=== PATIENT | female | born 1960 | race Caucasian/White ===

== ENCOUNTER 2018-09-30 00:55 | Outpatient (CLI) | payer BC, SELFPAY ==
--- NOTE | 2018-09-30 07:52 | DI.MAMMO_ITS ---
SYMPTOM/DIAGNOSIS: SCREENING, Z12.31 MAMMOGRAMS: Mammograms were interpreted according to the usual protocol including computer analysis with CAD system, tomosynthesis and C view imaging. Comparison is with the prior examinations. No suspicious masses or microcalcifications are seen. There is no definite evidence of malignancy. IMPRESSION: Negative mammogram. Routine screening is recommended. Category 1, breast density C. MQSA ASSESSMENT OF FINDINGS: Negative. Category 1. Patient will receive a letter notifying them of these results. Bi-RADS category C. The breasts are heterogeneously dense, which may obscure small masses.
== END 2018-09-30 01:15 ==
PROVIDERS: PCP Family Medicine; Visit Provider Family Medicine
DX: Z12.31 Encounter for screening mammogram for malignant neoplasm of breast (principal)
CPT/HCPCS: 77063; 77067

== ENCOUNTER 2018-12-02 10:14 | Outpatient (REF) | payer BC, SELFPAY ==
--- NOTE | 2018-12-02 08:45 | PAPFT_PTH ---
PATIENT: Brooklyn Lizarraga LOC: [facility] U#:[id number] AGE/SX: 58/F ROOM: RE12/02/[address]: Muna Oleary : 1960 BED: DIS: 12/02/2018 SPEC #: [id number] RECD: 12/02/18 12:27 STATUS: NENA REQ #: [id number] SHAHID: 12/02/18 08:[address]: Muna Oleary DEPT: [facility] Cytology RECD BY: Bridget Klein Tissues: 1 - CX/ENDOCX FOR PAP SMEARS Procedures: PAP THIN PREP/UVM Screening HPV DNA PROBE Comments: [id number]
[2018-12-02 11:27] LABS: HCT 41.2 % (36.0-46.0); HGB 13.8 g/dL (12.0-15.5); Mean Corp. HGB Concentration 33.5 g/dL (32.0-36.0); Mean Corpuscular Volume 101.5 fL (80-95); Mean Platelet Volume 11.8 fL (8.0-11.0); Platelet Count 238 x1000/uL (130-400); RBC 4.06 m/cumm (4.00-5.20); White Blood Cell Count 6.23 k/cumm (4.4-10.8)
[2018-12-02 11:50] LABS: ALT 36 U/L (14-59); AST 29 U/L (15-37); Albumin 4.1 g/dL (3.4-5.0); Alkaline Phosphatase 74 U/L (46-116); Anion Gap 10.7 mmol/L (3-11); BUN 16 mg/dL (7-18); Bilirubin, Total 0.4 mg/dL (0.2-1.0); CO2 26.3 mmol/L (21.0-32.0); CREATININE 0.77 mg/dL (0.55-1.02); Calcium 9.3 mg/dL (8.5-10.1); Calculated LDL 186 mg/dL; Chloride 104 mmol/L (98-107); Cholesterol 287 mg/dL (50-200); Glucose 117 mg/dL (70-100); HDL Cholesterol 78 mg/dL (40-60); Potassium 4.1 mmol/L (3.5-5.1); Sodium 141 mmol/L (136-145); Total Protein 7.6 g/dL (6.4-8.2); Triglyceride 119 mg/dL (30-150)
== END 2018-12-02 10:34 ==
LOC: NCHCN 10:14
PROVIDERS: PCP Family Medicine; Visit Provider Family Medicine
DX: Z00.00 Encounter for general adult medical examination without abnormal findings (principal); Z13.220 Encounter for screening for lipoid disorders; Z13.228 Encounter for screening for other metabolic disorders; Z13.0 Encounter for screening for diseases of the blood and blood-forming organs and certain disorders involving the immune mechanism; Z12.4 Encounter for screening for malignant neoplasm of cervix; Z11.51 Encounter for screening for human papillomavirus (HPV)
CPT/HCPCS: 80053; 80061; 85027; 88142; 87624

== ENCOUNTER 2020-01-30 00:52 | Outpatient (CLI) | payer BC, SELFPAY ==
--- NOTE | 2020-01-30 15:50 | DI.MAMMO_ITS ---
EXAM: MG MAMMO SCREENING CLINICAL HISTORY: SCREENING,Z12.31 TECHNIQUE: Bilateral full field digital CC and MLO mammographic images were obtained with 3D tomosyn thesis and utilizing computer aided detection (CAD). COMPARISON: Available for comparison. FINDINGS: Masses/Architectural Distortion: None seen. Microcalcifications: No suspicious pleomorphic-type are seen. Skin Thickening/Nipple Retraction: None. IMPRESSION: 1. No significant interval change with no specific features of malignancy noted. 2. Unless there is more urgent need, screening mammography is recommended, as per [employer] [place] [employer] guidelines. BI-RADS Category 1 - Negative Breast Density - Category C - Heterogeneously dense The mammogram demonstrates the patient's breast tissue is dense. Dense breast tissue is very common a nd is not abnormal but dense breast tissue can make it harder to find cancer on a mammogram. Also, de nse breast tissue may increase their breast cancer risk. This information about the result of the [facility] mogram report was provided to the patient to raise their awareness. Use this report when you speak wi th the patient about their risks for breast cancer, which includes their family history. At that time , you may recommend for more screening tests (Ultrasound or MRI) as they might be useful based on the ir risk. A negative radiographic report should not delay biopsy if a dominant or clinically suspicious mass is present. Up to ten percent of cancers are not identified on mammography. A negative report may reinforce clinical impression. Adenosis and dense breasts may obscure an underlying neoplasm. False positive reports average 6 to 10%. Patient will receive a letter notifying them of these results.
== END 2020-01-30 01:12 ==
PROVIDERS: PCP Family Medicine; Visit Provider Family Medicine
DX: Z12.31 Encounter for screening mammogram for malignant neoplasm of breast (principal)
CPT/HCPCS: 77063; 77067

== ENCOUNTER 2022-07-06 16:58 | Emergency (ER) | payer BC, SELFPAY ==
[2022-07-06 16:54] VITALS: BP 119/74; PULSE 74; RESP 18; TEMP 37; O2SAT 100
--- NOTE | 2022-07-06 17:30 | DI.RAD_ITS ---
Exam(s) XR FEMUR RT EXAM: XR FEMUR RT CLINICAL HISTORY: accidental split, pain medial thigh and pelvis. TECHNIQUE: 2D digital imaging was performed. COMPARISON: No exams were available for comparison FINDINGS: Two views: No evidence of fracture. Bone density normal. No osseous lesions. No evidence of knee joint effusi on. IMPRESSION: No significant osseous findings. DATA REPOSITORY: RADIATION DOSE DELIVERED:
--- NOTE | 2022-07-06 17:30 | DI.RAD_ITS ---
Exam(s) XR HIP RT COMPLETE AP PELVIS EXAM: XR HIP RT COMPLETE AP PELVIS CLINICAL HISTORY: accidental splint, medial pain and pelvic pain. TECHNIQUE: 2D digital imaging was performed. COMPARISON: No exams were available for comparison FINDINGS: 3 views No evidence of acute pelvic nor hip fracture. Small calcifications are seen bilaterally adjacent to the greater trochanters a both hips. May represent calcific tendinitis-bursitis. No significant hip joint space narrowing. IMPRESSION: No acute fractures evident. DATA REPOSITORY: RADIATION DOSE DELIVERED:
[2022-07-06] MEDS: Ibuprofen 600 MG TAB PO (17:40)
[2022-07-06] MEDS: Ondansetron O.D.T. 4 MG TABEF PO (17:40)
[2022-07-06] MEDS: oxyCODONE 5 MG TAB PO (17:41)
--- NOTE | 2022-07-06 18:27 | DI.VRAD_ITS ---
PROCEDURE INFORMATION: Exam: XR Right Femur Exam date and time: 07/06/2022 5:53 PM Age: 61 years old Clinical indication: Injury or trauma; Other: Accidental split, pain medial thigh and pelvis TECHNIQUE: Imaging protocol: Radiologic exam of the right femur. Views: 2 views. COMPARISON: CR XR HIP RT COMPLETE AP PELVIS 07/06/2022 5:51 PM FINDINGS: Bones/joints: Unremarkable. No acute fracture. Soft tissues: Unremarkable. IMPRESSION: No acute findings. Dictated and Authenticated by: Josué Lenz MD. Ordering:LYDIA Gill MD
--- NOTE | 2022-07-06 18:28 | DI.VRAD_ITS ---
PROCEDURE INFORMATION: Exam: XR Right Hip Exam date and time: 07/06/2022 5:51 PM Age: 61 years old Clinical indication: Injury or trauma; Fall; Other: Accidental split, pain medial thigh and pelvis TECHNIQUE: Imaging protocol: Radiologic exam of the right hip. Views: 2 or 3 views hip with pelvis when performed. COMPARISON: No relevant prior studies available. FINDINGS: Bones/joints: There is a well corticated bony fragment at the level of the superolateral aspect of the acetabulum. This could be causing an impingement syndrome. There is no evidence of a fracture or a dislocation. Soft tissues: Unremarkable. IMPRESSION: Question impingement syndrome as above. No evidence of a fracture or dislocation. Dictated and Authenticated by: Josué Lenz MD. Ordering:LYDIA Gill MD
--- NOTE | 2022-07-06 18:57 | ED.GENADUL_ITS ---
Discharge Plan Disposition Patient Disposition: Home Discharge Details Clinical Impression: History of leg sprain Primary Care Provider: Muna Oleary ED Provider: Bridget Rockwell Home Meds and New Rx's Prescriptions: New lidocaine [Lidoderm] 5 % adhesive patch,medicated 1 patch topical DAILY Qty: 15 0RF Rx Instructions: leave on most painful area for up to 12 hrs cyclobenzaprine 10 mg tablet 10 mg PO TID PRNQty: 10 0RF oxycodone 5 mg capsule 5 mg PO Q6H PRNQty: 10 0RF Continued lorazepam 0.5 MG tablet 0.5 mg PO Q6H Qty: 10 0RF Patient Comments: not taking Discharge Instructions Additional Instructions: Please follow-up with orthopedics Use your crutches with ambulation Take ibuprofen 600 mg every 8 hours with food Take Tylenol 650 mg every 4-6 hours, do not exceed 3 g of Tylenol daily Take either the cyclobenzaprine or the oxycodone, do not take them with any 8 hours of each other Oxycodone can be addictive, use this medication sparingly but use it as needed Apply ice, Lidoderm patch, 12 hours on, 12 hours off Weightbearing as tolerated Return earlier should you have new or worsening complaints including significant swelling, numbness to your extremities, persistent or worsening pain Referrals: Muna Oleary [Primary Care Provider] - Discharge Data Discharge Date/Time-TO BE ENTERED AT DEPARTURE: 07/06/22 20:01 Medical Decision Making 61-year-old female presents with slip and fall on ice, unable to bear weight on her right leg X-rays of pelvis, hip, and femur were ordered for further evaluation per virtual radiology interpretation my review do not show evidence of acute abnormality Check several doses of pain medication for the patient to be able to ambulate, in a dependent position, she is in excruciating pain She was given additional dose of morphine and able to toe-touch weight-bear with crutches I think she will need very close outpatient follow-up, I am concerned regarding severe sprain, I referred to orthopedics for further evaluation Given oxycodone and Flexeril for home HPI General Date/Time Provider Initiated Documentation: 07/06/22 17:23 . HPI Narrative: This 61-year-old female presents with report of right groin pain. Patient states that she slipped on some ice and did a split. She states that she was unable to get up secondary to severe pain in her right posterior thigh She states she is unable to bear weight. She denies any additional injuries. She is otherwise reportedly healthy. Related Data Home Medications Medication Instructions Recorded Confirmed lorazepam 0.5 mg tablet 0.5 mg PO Q6H #10 tabs 12/29/13 03/21/19 cyclobenzaprine 10 mg tablet 10 mg PO TID PRN #10 tabs 07/06/22 lidocaine 5 % topical patch 1 patch topical DAILY #15 ea 07/06/22 (Lidoderm) oxycodone 5 mg capsule 5 mg PO Q6H PRN #10 caps 07/06/22 Previous Rx's Medication Instructions Recorded lorazepam 0.5 mg tablet 0.5 mg PO Q6H #10 tabs 12/29/13 cyclobenzaprine 10 mg tablet 10 mg PO TID PRN #10 tabs 07/06/22 lidocaine 5 % topical patch 1 patch topical DAILY #15 ea 07/06/22 (Lidoderm) oxycodone 5 mg capsule 5 mg PO Q6H PRN #10 caps 07/06/22 Allergies Allergy/AdvReac Type Severity Reaction Status Date / Time oxycodone [Oxycodone] AdvReac Intermediate Nausea Unverified 07/06/22 16:53 General Stated Complaint: Orthopedic PEPE: 3 PFSH All Active Problems (Updated 07/06/22 @ 19:41 by ABIMAEL Baker) History of leg sprain (Acute) Trigger thumb, left thumb (Acute) Social History Smoking/Tobacco Use Status: Current every day Smoking risk assessment performed?: Yes Alcohol Intake: current Alcohol Intake frequency: holidays/special occasions only Drug use: Never Current gender identity: female Exam Narrative Exam Narrative: tenderness with palpation to the right medial thigh, neurovascularly intact, no tenderness to right knee or pelvis, no abdominal tenderness no midline back tenderness, neurovascularly intact distally No CVA tenderness Neck Other: No midline tenderness Course Vital Signs Vital signs: Vital Signs Temperature 37.0 C 07/06/22 16:54 Pulse 74 07/06/22 16:54 Respiratory Rate 18 07/06/22 16:54 Blood Pressure 119/74 07/06/22 16:54 Pulse Oximetry 100 07/06/22 16:54 Temperature 37.0 C 07/06/22 16:54 Pulse 74 07/06/22 16:54 Respiratory Rate 18 07/06/22 16:54 Respiratory Effort Normal, Non-Labored 07/06/22 16:53 Blood Pressure 119/74 07/06/22 16:54 Pulse Oximetry 100 07/06/22 16:54 PAWSS Have you Been Recently Intoxicated or Drunk Within the Last 30 days?: No Have you Ever Experienced Previous Episodes of Alcohol Withdrawal?: No Have you ever Experienced Withdrawal Seizures?: No Have you ever Experienced Delirium Tremens(DT)s?: No Have you ever undergone Alcohol Rehabilitation Treatment (i.e, inpt ot outpatient treatment programs)?: No Have you ever Experienced Blackouts?: No Have you ever Combined Alcohol with other Downers within the last 90 days?: No Have you ever Combined Alcohol with any other Substance of Abuse during the last 90 days?: No Positive Blood Alcohol level on Presentation? [PCS.BAL]: No Evidence of Increased Autonomic Activity (i.e. HR>120, tremor, sweating, agitation, nausea)?: No Result: 0
[2022-07-06] MEDS: MORPHine 10 MG/ML VIAL 6 MG IM (19:19)
[2022-07-06] MEDS: diazePAM 2 MG TAB PO (19:19)
[2022-07-06] MEDS: Lidocaine 5% Patch 1 PATCH TP (19:19)
[2022-07-06 20:00] VITALS: PULSE 78; TEMP 36.9; O2SAT 98
--- NOTE | 2022-07-07 12:54 | NUR.NOTE ---
Nursing Note:Accessed patient chart to print provider note to be faxed to [facility] for billing purposes.
== END 2022-07-06 20:01 | disposition home or self-care (01) ==
PROVIDERS: Emergency Provider Physician Assistant; PCP Family Medicine
DX: S73.101A Unspecified sprain of right hip, initial encounter (principal); W00.0XXA Fall on same level due to ice and snow, initial encounter
CPT/HCPCS: 73552; 96372; 99283; 73502; J2270

== ENCOUNTER 2022-07-31 01:34 | Outpatient (CLI) | payer BC, SELFPAY ==
--- NOTE | 2022-07-31 08:00 | DI.MAMMO_ITS ---
Exam(s) MAMMO SCREENING EXAM: MAMMO SCREENING CLINICAL HISTORY: SCREENING, Z12.31. TECHNIQUE: Bilateral full field digital CC and MLO mammographic images were obtained with 3D tomosyn thesis and utilizing computer aided detection (CAD). COMPARISON: Prior mammograms were reviewed. FINDINGS: There has been no significant change in the appearance and distribution of the fibroglandular tissue which is again noted be moderately dense and with a somewhat nodular pattern.. There are no obvious new findings in left breast. In the right breast on CC image there is a asymmetric density located 4 cm in from the nipple, slight ly lateral of center and measuring approximately 5 x 4 mm, possibly nodule. Further imaging recommen ded. There are no malignant-appearing microcalcification groups in this region or elsewhere in either [address]. There is no significant architectural distortion nor skin thickening-retraction. IMPRESSION: Moderately dense fibroglandular tissue. No radiographic evidence of malignancy in the left breast. However, there is suggestion of a nodular density in the right breast measuring 5 x 4 mm. Spot compr ession CC mammographic view and breast ultrasound recommended. BI-RADS Category 0 - Assessment Incomplete: Need additional imaging evaluation Breast Density - Category C - Heterogeneously dense Breast density Category C or D implies that the patient has dense breast tissue. Dense breast tissue can make it harder to find cancer on a mammogram. Dense breast tissue is also associated with an incr eased risk of breast cancer. This information about the result of the mammogram report was provided to the patient to raise their awareness. Use this report when you speak with the patient about their risks for breast cancer, which includes their family history. At that time, you may recommend additional screening tests (Ultrasoun d or MRI) as these tests may add significant information. A negative radiographic report should not delay biopsy if a dominant or clinically suspicious mass is present. Up to ten percent of cancers are not identified on mammography. A negative report may reinforce clinical impression. Adenosis and dense breasts may obscure an underlying neoplasm. False positive reports average 6 to 10%. Patient will receive a letter notifying them of these results.
== END 2022-07-31 01:54 ==
LOC: DI 01:35
PROVIDERS: PCP Family Medicine; Visit Provider Family Medicine
DX: Z12.31 Encounter for screening mammogram for malignant neoplasm of breast (principal); R92.8 Other abnormal and inconclusive findings on diagnostic imaging of breast
CPT/HCPCS: 77063; 77067

== ENCOUNTER 2022-08-08 00:49 | Outpatient (CLI) | payer BC, SELFPAY ==
--- NOTE | 2022-08-08 10:15 | DI.MAMMO_ITS ---
Exam(s) MG MAMMO SCREEN CALL BACK UNI US BREAST RT LIMITED EXAM: MG MAMMO SCREEN CALL BACK UNI and U/S breast RT limited CLINICAL HISTORY: ASYMMETRIC DENSITY 4 CM FROM NIPPLE, 5 X 4 MM, RT BREAST. TECHNIQUE: Craniocaudal and mediolateral oblique Full Field Digital Mammography views of the right b reast with Computer Aided Diagnosis followed by Tomosynthesis and right breast ultrasound. COMPARISON: Comparison is made with prior examinations. FINDINGS: Mammography/Tomosynthesis: Masses/Architectural Distortion: The area of concern in the outer right breast is less concerning on the current examination. No persistent nodule is seen. Microcalcifictions: No suspicious pleomorphic-type are seen. Skin Thickening/Nipple Retraction: None. Limited right breast US: Echotexture: Normal appearance of the glandular tissue. Shadowing: No suspicious foci. Cyst: None. Solid lesions: There is a ovoid radially oriented hypoechoic nodule at the 9 o'clock position of the right breast measuring 0.6 x 0.3 cm. No posterior acoustic enhancement or shadowing is seen. It has a somewhat lobulated appearance and may represent an intraparenchymal lymph node. Ductal dilation: None. IMPRESSION: 1. No definite evidence of malignancy is noted. 2. A six-month follow-up right mammogram and ultrasound is requested for re-evaluation. 3. The findings were discussed with the patient on the date of the examination. BI-RADS Category 3 - 6 month - Probably Benign Finding: Recommend follow-up imaging in 6 months Breast Density - Category C - Heterogeneously dense Breast density Category C or D implies that the patient has dense breast tissue. Dense breast tissue can make it harder to find cancer on a mammogram. Dense breast tissue is also associated with an incr eased risk of breast cancer. This information about the result of the mammogram report was provided to the patient to raise their awareness. Use this report when you speak with the patient about their risks for breast cancer, which includes their family history. At that time, you may recommend additional screening tests (Ultrasoun d or MRI) as these tests may add significant information. A negative radiographic report should not delay biopsy if a dominant or clinically suspicious mass is present. Up to ten percent of cancers are not identified on mammography. A negative report may reinforce clinical impression. Adenosis and dense breasts may obscure an underlying neoplasm. False positive reports average 6 to 10%. Patient will receive a letter notifying them of these results.
== END 2022-08-08 01:09 ==
LOC: DI 00:49
PROVIDERS: PCP Family Medicine; Visit Provider Family Medicine
DX: R92.8 Other abnormal and inconclusive findings on diagnostic imaging of breast (principal)
CPT/HCPCS: 76642; 77063; 77067

== ENCOUNTER 2022-08-27 08:47 | Outpatient (REF) | payer BC, SELFPAY ==
[2022-08-27 15:05] LABS: HCT 41.8 % (36.0-46.0); HGB 13.9 g/dL (11.2-15.7); MCH 35.3 pg (27.0-33.0); MCHC 33.3 % (32.0-36.0); MCV 106 fL (80-95); MPV 11.4 fL (8.0-11.0); Platelet Count 239 10^3/uL (130-400); RBC 3.94 10^6/uL (3.93-5.22); RDW 13.3 % (11.7-14.6); RDW-SD 52.9 fL; WBC 8.02 10^3/uL (4.4-10.8)
[2022-08-27 15:34] LABS: Hemoglobin A1C 5.2 % (<5.7)
[2022-08-27 15:46] LABS: ALT 28 U/L (14-59); AST 27 U/L (15-37); Albumin 4.1 g/dL (3.4-5.0); Alkaline Phosphatase 81 U/L (46-116); BUN 7 mg/dL (7-18); Bilirubin, Total 0.6 mg/dL (0.2-1.0); CREATININE 0.9 mg/dL (0.55-1.02); Calcium 9.6 mg/dL (8.5-10.1); Calculated LDL 133 mg/dL (<100); Chloride 104 mmol/L (98-107); Cholesterol 271 mg/dL (<200); Estimated GFR 73.19 (mL/min/1.73m2); Glucose 112 mg/dL (74-106); HDL Cholesterol 116 mg/dL (40-60); Potassium 4.5 mmol/L (3.5-5.1); Sodium 141 mmol/L (136-145); Total Protein 8.2 g/dL (6.4-8.2); Triglyceride 110 mg/dL (<150); Vitamin B12 1082 pg/mL (193-986)
== END 2022-08-27 08:48 | disposition home or self-care (01) ==
LOC: NCHCN 08:47
PROVIDERS: PCP Family Medicine; Visit Provider Family Medicine
DX: Z00.00 Encounter for general adult medical examination without abnormal findings (principal); E78.5 Hyperlipidemia, unspecified; R51.9 Headache, unspecified; R79.89 Other specified abnormal findings of blood chemistry
CPT/HCPCS: 80053; 80061; 85027; 82607; 83036

== ENCOUNTER → 2023-02-17 02:25 | Outpatient (CLI) | payer BC, SELFPAY ==
--- NOTE | 2023-02-17 | DI.US_ITS ---
Exam(s) MG MAMMO DIAGNOSTIC UNI US BREAST RT COMPLETE EXAM: MG MAMMO DIAGNOSTIC UNI-RIGHT AND COMPLETE RIGHT BREAST ULTRASOUND CLINICAL HISTORY: ABNL MAMMO R92.8 6 MO FU. TECHNIQUE: Unilateral RIGHT BREAST CC AND MLO mammographic images were obtained with 3D tomosynthesi s technique and utilizing computer aided detection (CAD). COMPLETE RIGHT BREAST ULTRASOUND performed, including all 4 quadrants and right axilla. COMPARISON: Prior mammograms were reviewed, the most recent being July 2022. Prior ultrasound July 2022 also reviewed. FINDINGS: Diagnostic right breast mammogram: Small previously described nodular density appears unchanged from prior study. No new spiculated mas ses in nor malignant-appearing microcalcification groups. No new architectural distortion or skin th ickening-retraction. Proceeded with ultrasound.... Right breast ultrasound: At the 9 o'clock position the previously described 6 x 3 mm slightly lobulated findings again noted, unchanged in size and configuration. Remains wider than taller and with benign appearance. This may represent a microcyst or small fibroadenoma. There are no additional focal findings in all 4 quadrants. Scanning of the ipsilateral right axilla is negative for adenopathy. IMPRESSION: 1. Stable benign-appearing findings as described above on mammography and right breast ultrasound. I t is not certain that the finding on the mammogram corresponds to the benign-appearing finding on ult rasound. Nevertheless, both findings have benign appearance. Appropriate follow-up is keep this patient on her yearly mammogram schedule, this implying the next b ilateral mammogram would be in July 2023. At that time recommend repeat breast ultrasound. The patient was informed of the findings and follow-up recommendations by myself prior to leaving the department today. BI-RADS Category 2 - Benign Findings Breast Density - Category B - Scattered areas of fibroglandular density Breast density Category C or D implies that the patient has dense breast tissue. Dense breast tissue can make it harder to find cancer on a mammogram. Dense breast tissue is also associated with an incr eased risk of breast cancer. This information about the result of the mammogram report was provided to the patient to raise their awareness. Use this report when you speak with the patient about their risks for breast cancer, which includes their family history. At that time, you may recommend additional screening tests (Ultrasoun d or MRI) as these tests may add significant information. A negative radiographic report should not delay biopsy if a dominant or clinically suspicious mass is present. Up to ten percent of cancers are not identified on mammography. A negative report may reinforce clinical impression. Adenosis and dense breasts may obscure an underlying neoplasm. False positive reports average 6 to 10%. Patient will receive a letter notifying them of these results.
== END ==
PROVIDERS: PCP Family Medicine; Visit Provider Family Medicine
DX: R92.8 Other abnormal and inconclusive findings on diagnostic imaging of breast (principal)
CPT/HCPCS: 76642; 77061; 77065; G0279

== ENCOUNTER 2023-03-09 19:04 | Outpatient (CLI) | payer BC, SELFPAY ==
[2023-03-09 15:23] LABS: HCT 38.9 % (36.0-46.0); HGB 12.9 g/dL (11.2-15.7); MCH 33.8 pg (27.0-33.0); MCHC 33.2 % (32.0-36.0); MCV 102 fL (80-95); MPV 10.3 fL (8.0-11.0); Platelet Count 214 10^3/uL (130-400); RBC 3.82 10^6/uL (3.93-5.22); RDW-SD 48.7 fL; WBC 4.48 10^3/uL (4.4-10.8)
[2023-03-09 15:54] LABS: D-Dimer 469 ng/mlFEU (<500)
[2023-03-09 16:02] LABS: ALT 40 U/L (14-59); AST 35 U/L (15-37); Albumin 3.7 g/dL (3.4-5.0); Alkaline Phosphatase 76 U/L (46-116); BUN 13 mg/dL (7-18); Bilirubin, Total 0.3 mg/dL (0.2-1.0); CREATININE 0.8 mg/dL (0.55-1.02); Calcium 9.1 mg/dL (8.5-10.1); Chloride 104 mmol/L (98-107); Estimated GFR 83.78 (mL/min/1.73m2); Glucose 132 mg/dL (74-106); Lipase 41 U/L (16-77); Magnesium 1.7 mg/dL (1.8-2.4); Potassium 3.7 mmol/L (3.5-5.1); Sodium 141 mmol/L (136-145); TSH (W/Ref FT4) 1.74 uIU/mL (0.36-3.74); Total Protein 7.8 g/dL (6.4-8.2); Troponin I < 50 ng/L (<or=60)
== END 2023-03-09 19:05 | disposition home or self-care (01) ==
LOC: LBO 19:05
PROVIDERS: PCP Family Medicine; Visit Provider Family Medicine
DX: R00.2 Palpitations (principal); R07.89 Other chest pain
CPT/HCPCS: 36415; 80053; 83690; 85027; 83735; 84443; 84484; 85379

== ENCOUNTER 2023-06-03 13:28 | Emergency (ER) | payer BC, SELFPAY ==
--- NOTE | 2023-06-03 13:15 | RT.EKG_ITS ---
APPROVED REPORT Exam: Resting ECG Reason for Exam: chest pain Patient Location: E HR:84 bpm ECG Measurements Heart Rate 84 AXIS MA 215 P 67 QRSd 119 QRS 65 QT 401 T 52 QTc 475 Conclusion Sinus rhythm...normal P axis, V-rate 60- 99 Borderline prolonged MA interval...MA >212, V-rate 50- 90 Incomplete right bundle branch block...QRSd >112, terminal axis(90,270) Physician: RBBB
[2023-06-03 13:34] VITALS: PULSE 88; O2SAT 100
[2023-06-03 13:35] VITALS: BP 163/93; BP 163/98; PULSE 81; PULSE 83; RESP 18; TEMP 37; O2SAT 100
[2023-06-03 13:40] VITALS: PULSE 81; O2SAT 99
[2023-06-03 13:46] VITALS: BP 148/97; PULSE 81; PULSE 85; O2SAT 98
[2023-06-03 13:50] VITALS: PULSE 83; O2SAT 98
[2023-06-03 13:52] LABS: Abs Immature Grans 0.02 10^3/uL (0.0-0.06); Absolute Basophil Count 0.09 10^3/uL (0.0-0.2); Absolute Eosinophil Count 0.17 10^3/uL (0.0-0.7); Absolute Lymphocyte Count 1.97 10^3/uL (1.2-3.4); Absolute Monocyte Count 0.66 10^3/uL (0.1-0.8); Absolute Neutrophil Count 6.12 10^3/uL (1.2-6.7); Eosinophils % 1.9; HCT 36.6 % (36.0-46.0); HGB 12.2 g/dL (11.2-15.7); Immature Grans % 0.2; Lymphocytes % 21.8; MCHC 33.3 % (32.0-36.0); MCV 102 fL (80-95); MPV 10.4 fL (8.0-11.0); Monocytes % 7.3; Neutrophils % 67.8; Platelet Count 269 10^3/uL (130-400); RBC 3.59 10^6/uL (3.93-5.22); RDW 13.9 % (11.7-14.6); RDW-SD 51.6 fL; WBC 9.03 10^3/uL (4.4-10.8)
[2023-06-03 13:54] VITALS: BP 156/94; PULSE 82; PULSE 85; O2SAT 98
[2023-06-03] MEDS: nitroGLYcerin 0.4 MG TAB SL (13:56)
[2023-06-03] MEDS: Normal Saline 500 ML IV (13:56)
--- NOTE | 2023-06-03 14:00 | DI.RAD_ITS ---
Exam(s) XR PORTABLE CHEST AP EXAM: XR PORTABLE CHEST AP CLINICAL HISTORY: central chest pain after eating TECHNIQUE: 2D digital imaging was performed of the chest. One image was obtained. An AP view was ob tained. COMPARISON: CR CHEST 2 VIEWS PA,LAT from 01/07/2010 FINDINGS: MEDIASTINUM: Normal. HEART: Normal. PULMONARY VASCULATURE: Normal. LUNGS: Clear. PLEURAL SPACE: No pleural effusion or pneumothorax. BONE:Within normal limits for the patient's age. OTHER FINDINGS:There is a small bulge seen in the midportion of the left hemidiaphragm which probably just represents the diaphragm. No radiopaque foreign bodies. IMPRESSION: No acute pulmonary findings. DATA REPOSITORY: RADIATION DOSE DELIVERED:
[2023-06-03 14:14] LABS: ALT 30 U/L (14-59); AST 22 U/L (15-37); Albumin 3.6 g/dL (3.4-5.0); Alkaline Phosphatase 84 U/L (46-116); Anion Gap 9.4 mmol/L (3-11); BUN 10 mg/dL (7-18); Bilirubin, Total 0.3 mg/dL (0.2-1.0); CO2 28.6 mmol/L (21.0-32.0); CREATININE 0.8 mg/dL (0.55-1.02); Calcium 9.3 mg/dL (8.5-10.1); Chloride 101 mmol/L (98-107); Estimated GFR 83.78 (mL/min/1.73m2); Glucose 111 mg/dL (74-106); Lipase 40 U/L (16-77); NT-proBNP 88 pg/mL (<300); Potassium 4.1 mmol/L (3.5-5.1); Sodium 139 mmol/L (136-145); Troponin I < 50 ng/L (< or =60)
--- NOTE | 2023-06-03 14:24 | W.ED.GENAD ---
Discharge Plan Disposition Patient Disposition: Home Condition: Good Discharge Details Clinical Impression: Esophageal spasm, Chest pain Primary Care Provider: Patience Flores ED Provider: Maxim Hood Home Meds and New Rx's Prescriptions: No Action No Known Home Meds Discharge Instructions Instructions: Esophageal Spasm (ED) Additional Instructions: At this time your workup has returned normal. Your chest x-ray shows no significant abnormalities. Your initial and repeat troponin are normal. Your laboratory workup is otherwise very reassuring. As we discussed together I suspect that your symptoms are secondary to an esophageal spasm due to the clinical nature and history of the event. Please avoid any hard foods for the next 24 to 48 hours. Stick with liquid and soft foods for the next 48 hours. Take Tylenol and Motrin as needed for pain. If you notice any worsening of your symptoms, or any new symptoms such as vomiting, diarrhea, fever, chills, shortness of breath, chest pain, numbness, weakness, or fainting , please return immediately to the emergency department for reevaluation. Please follow up with your primary care provider as soon as possible for reassessment and reevaluation. As always, it was a pleasure participating in your medical care today. Referrals: Patience Flores [Primary Care Provider] - [facility] General Date/Time Provider Initiated Documentation: 06/03/23 13:33. HPI Narrative: 62-year-old female with no significant past medical history who presents today for evaluation of chest pain. Patient states that about 30 minutes prior to arrival she was eating some lettuce, she felt like it went down the wrong tube, she had a brief coughing/choking episode, but was unable to drink and eat and breathe well. She had no challenges after that however she then shortly thereafter developed severe stabbing chest pain that seem to come and go. It waxed and waned, and was not improved or relieved by anything in particular. Pain was central in the lower sternum. No pain to her shoulders or neck. No shortness of breath or pleuritic chest pain. She denies ever having symptoms like this before. No history of cardiac disease. Patient smoked years ago, but does not currently. She denies any difficulty swallowing or drinking at this time. No other complaints at this time. No other modifying factors. Related Data Home Medications Medication Instructions Recorded Confirmed Unknown [No Known Home Meds] 10/21/22 06/03/23 Allergies Allergy/AdvReac Type Severity Reaction Status Date / Time Sulfa (Sulfonamide Allergy Mild Nausea Verified 06/03/23 13:47 Antibiotics) oxycodone [Oxycodone] AdvReac Intermediate Nausea Unverified 10/21/22 14:17 General Stated Complaint: Chest Pain PEPE: 3 Review of Systems All systems reviewed & are unremarkable except as noted in HPI and below Exam Narrative Exam Narrative: 1.Const: Well-nourished, Well-developed, appearing stated age 2.Eyes: PERRL, no conjunctival injection, and symmetrical lids. 3.ENT: Atraumatic external nose and ears. Moist MM. Neck: Symmetric, trachea midline, No thyromegaly. 4.CVS: +S1/S2, No murmurs or gallops. Peripheral pulses 2+ and equal in all extremities. Brisk capillary refill in all extremities. 5.RESP: Unlabored respiratory effort. Clear to auscultation bilaterally. No wheezes rales or rhonchi 6.GI: Soft, Nontender/Nondistended, No hepatosplenomegaly. No guarding or rebound. 7.MSK: Normocephalic/Atraumatic, Extremities w/o deformity or ttp No cyanosis or clubbing, Normal movement of all extremities 8.Skin: Warm, Dry. No rashes or lesions. 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 Sensation grossly intact, no focal neurologic deficits. 10.Psych: (AAO) x3. Appropriate mood and affect Course Vital Signs Vital signs: Vital Signs Pulse Oximetry 100 06/03/23 13:34 Temperature 37.0 C 06/03/23 13:35 Temperature Source Tympanic 06/03/23 13:35 Pulse 82 06/03/23 13:54 Pulse 85 06/03/23 13:54 Respiratory Rate 18 06/03/23 13:35 Respiratory Effort Normal 06/03/23 13:49 Blood Pressure 156/94 H 06/03/23 13:54 Blood Pressure Mean 113 06/03/23 13:54 Blood Pressure Position Supine 06/03/23 13:35 Pulse Oximetry 98 06/03/23 13:54 Oxygen Delivery Method Room Air 06/03/23 13:35 Oxygen Flow Rate 0 06/03/23 13:35 Pain Level 5 03/13/24 13:35 Comment EKG done 06/03/23 13:35 Lab/Test Results Lab/Test Results: Laboratory Tests Range/Units 06/03/23 13:45 WBC (4.4-10.8) 10^3/uL 9.03 RBC (3.93-5.22) 10^6/uL 3.59 L Hgb (11.2-15.7) g/dL 12.2 Hct (36.0-46.0) % 36.6 MCV (80-95) fL 102 H MCH (27.0-33.0) pg 34.0 H MCHC (32.0-36.0) % 33.3 RDW (11.7-14.6) % 13.9 Plt Count (130-400) 10^3/uL 269 MPV (8.0-11.0) fL 10.4 Immature Gran % 0.2 Neutrophils % 67.8 Lymphocytes % 21.8 Monocytes % 7.3 Eosinophils % 1.9 Basophils % 1.0 Nucleated RBC % (0.0-0.3) % 0.0 Absolute Neutrophils (1.2-6.7) 10^3/uL 6.12 Absolute Lymphocytes (1.2-3.4) 10^3/uL 1.97 Absolute Monocytes (0.1-0.8) 10^3/uL 0.66 Absolute Eosinophils (0.0-0.7) 10^3/uL 0.17 Absolute Basophils (0.0-0.2) 10^3/uL 0.09 Sodium (136-145) mmol/L 139 Potassium (3.5-5.1) mmol/L 4.1 Chloride (98-107) mmol/L 101 Carbon Dioxide (21.0-32.0) mmol/L 28.6 Anion Gap (3-11) mmol/L 9.4 BUN (7-18) mg/dL 10 Creatinine (0.55-1.02) mg/dL 0.8 Est GFR (CKD-EPI 2020) (mL/min/1.73m2) 83.78 Glucose (74-106) mg/dL 111 H Calcium (8.5-10.1) mg/dL 9.3 Total Bilirubin (0.2-1.0) mg/dL 0.3 AST (15-37) U/L 22 ALT (14-59) U/L 30 Alkaline Phosphatase (46-116) U/L 84 Troponin I (< or =60) ng/L < 50 NT-Pro-B Natriuret Pep (<300) pg/mL 88 Total Protein (6.4-8.2) g/dL 8.0 Albumin (3.4-5.0) g/dL 3.6 Lipase (16-77) U/L 40 Medical Decision Making 62-year-old female with no significant past medical history who presents today for evaluation of chest pain. Patient states that about 30 minutes prior to arrival she was eating some lettuce, she felt like it went down the wrong tube, she had a brief coughing/choking episode, but was unable to drink and eat and breathe well. She had no challenges after that however she then shortly thereafter developed severe stabbing chest pain that seem to come and go. It waxed and waned, and was not improved or relieved by anything in particular. Pain was central in the lower sternum. No pain to her shoulders or neck. No shortness of breath or pleuritic chest pain. She denies ever having symptoms like this before. No history of cardiac disease. Patient smoked years ago, but does not currently. She denies any difficulty swallowing or drinking at this time. No other complaints at this time. No other modifying factors. Exam demonstrates a slightly distressed and uncomfortable female. When pain comes on it appears to be quite uncomfortable, but then it relieves significantly. It is not ripping or tearing. It is just under the sternum. There is also mild epigastric discomfort. No guarding or rebound in the abdomen otherwise. Differential signs for esophageal spasm given the nature of the history and her current clinical presentation. Radial pulses are equal bilaterally. Symptoms appear to be inconsistent with dissection. EKG shows no evidence of STEMI. ACS less likely but on the differential. EKG normal. Lipase normal. Will give 0.4 mg of nitroglycerin and evaluate for improvement. Will evaluate for cardiac etiology, get x-ray, monitor closely and reassess. 3:01 PM After the nitroglycerin the patient had notable improvement of her symptoms. It is only mild and achy now after the nitroglycerin. EKG benign. Will continue to monitor closely and give NSAIDs. Symptoms do not appear to be consistent with ACS or dissection at this time. Initial workup shows normal troponin, normal proBNP, normal lipase, normal electrolytes and renal function, benign CBC. 3:32 PM Patient states that her pain is completely gone and she feels well. Chest x-ray negative for acute process. Heart score is low risk category. Pending repeat troponin with expected discharge if this is benign. Symptoms appear consistent with esophageal spasm, and appear inconsistent clinically at this time with ACS dissection PE. 4:28 PM Laboratory workup has returned, repeat troponin is normal. Patient remains chest pain-free. She feels well and would like to go home. Based on the symptoms and history I do feel that her symptoms are secondary to an esophageal spasm. Recommend soft food diet for the next 48 hours, good hydration, Tylenol Motrin as needed. Symptoms appearing consistent with ACS. Discussed red flags which to return. I have extensively reviewed the treatment plan and discharge instructions with the patient and their family. I have addressed all patient concerns at this time. The patient and family was made aware of what symptoms to monitor for that would warrant a return to the emergency department. Discussed the plan with the patient and family, they demonstrate verbal understanding and agreement with our assessment and plan at this time. The documentation in this chart was dictated using Touch[employer] dictation software. Please excuse any dictation errors. FINDINGS: MEDIASTINUM: Normal. HEART: Normal. PULMONARY VASCULATURE: Normal. LUNGS: Clear. PLEURAL SPACE: No pleural effusion or pneumothorax. BONE:Within normal limits for the patient's age. OTHER FINDINGS:There is a small bulge seen in the midportion of the left hemidiaphragm which probably just represents the diaphragm. No radiopaque foreign bodies. IMPRESSION: No acute pulmonary findings Quality:SDOH Health Related Social Needs: No Data to Display [facility] All Active Problems (Updated 06/03/23 @ 15:33 by Maxim Hood DO) Chest pain (Acute) Esophageal spasm (Acute) Asymmetrical sensorineural hearing loss (Acute) Trigger thumb, left thumb (Acute) Social History Smoking/Tobacco Use Status: Current every day Tobacco Type: cigarettes Smoking risk assessment performed?: Yes Alcohol Intake: current Alcohol Intake frequency: holidays/special occasions only Drug use: Never Housing: house Current gender identity: female
[2023-06-03 14:35] LABS: PTT Activated 26.1 sec (23.6-32.8); Prothrombin Time 9.6 sec (9.1-11.1)
[2023-06-03] MEDS: Ketorolac 15 MG/ML VIAL IVP (14:40)
[2023-06-03] MEDS: ACETAMINOPHEN 1,000 MG/100 ML BTL 400 MG IVPB (14:40)
[2023-06-03 16:19] LABS: Troponin I < 50 ng/L (< or =60)
== END 2023-06-03 16:36 | disposition home or self-care (01) ==
PROVIDERS: Emergency Provider Student in an Organized Health Care Education/Training Program; PCP Family Medicine
DX: K22.4 Dyskinesia of esophagus (principal); R07.89 Other chest pain; R94.31 Abnormal electrocardiogram [ECG] [EKG]; I45.19 Other right bundle-branch block
CPT/HCPCS: 36415; 80053; 83690; 93005; 96361; 96374; 96375; 99284; 71045; 83880; 84484; 85025; 85610; 85730; 93010; J0131; J1885

== ENCOUNTER 2023-08-19 15:24 | Outpatient (REF) | payer BC, SELFPAY ==
[2023-08-19 15:05] LABS: Abs Immature Grans 0.01 10^3/uL (0.0-0.06); Absolute Basophil Count 0.06 10^3/uL (0.0-0.2); Absolute Eosinophil Count 0.04 10^3/uL (0.0-0.7); Absolute Lymphocyte Count 1.26 10^3/uL (1.2-3.4); Absolute Monocyte Count 0.44 10^3/uL (0.1-0.8); Absolute Neutrophil Count 3.61 10^3/uL (1.2-6.7); Basophils % 1.1 %; Eosinophils % 0.7 %; HCT 39.3 % (36.0-46.0); HGB 13.3 g/dL (11.2-15.7); Immature Grans % 0.2 %; Lymphocytes % 23.2 %; MCH 34.7 pg (27.0-33.0); MCHC 33.8 % (32.0-36.0); MCV 103 fL (80-95); Monocytes % 8.1 %; Neutrophils % 66.7 %; Platelet Count 261 10^3/uL (130-400); RBC 3.83 10^6/uL (3.93-5.22); RDW 12.8 % (11.7-14.6); RDW-SD 48.5 fL; WBC 5.42 10^3/uL (4.4-10.8)
[2023-08-19 15:49] LABS: ALT 50 U/L (14-59); AST 94 U/L (15-37); Alkaline Phosphatase 67 U/L (46-116); Anion Gap 12.8 mmol/L (3-11); BUN 9 mg/dL (7-18); Bilirubin, Total 0.7 mg/dL (0.2-1.0); CO2 27.2 mmol/L (21.0-32.0); CREATININE 0.9 mg/dL (0.55-1.02); Chloride 99 mmol/L (98-107); Estimated GFR 72.73 (mL/min/1.73m2); Glucose 88 mg/dL (74-106); Magnesium 1.7 mg/dL (1.8-2.4); Potassium 4.7 mmol/L (3.5-5.1); Sodium 139 mmol/L (136-145); Total Protein 8.2 g/dL (6.4-8.2)
[2023-08-19 16:14] LABS: Calcium 9.8 mg/dL (8.5-10.1)
== END 2023-08-19 15:25 | disposition home or self-care (01) ==
LOC: NCHCN 15:24
PROVIDERS: PCP Family Medicine; Visit Provider Family Medicine
DX: R42 Dizziness and giddiness (principal)
CPT/HCPCS: 80053; 83735; 85025

== ENCOUNTER → 2023-09-02 00:10 | Outpatient (CLI) | payer BC, SELFPAY ==
--- NOTE | 2023-09-02 | DI.US_ITS ---
Exam(s) US BREAST LT COMPLETE US BREAST RT COMPLETE EXAM: US BREAST BILATERAL COMPLETE: CLINICAL HISTORY: 6-MO F/U ABNL IMAGING, R92.8. TECHNIQUE: Complete ultrasound of the BILATERAL breast was performed including all 4 quadrants, the retroareolar region, and the ipsilateral axilla. COMPARISON: Prior mammograms were reviewed. Prior ultrasound also reviewed. FINDINGS: Right breast ultrasound: The previously present finding at the 9 o'clock position has resolved, imply ing that it was a small cyst. There are no significant new ultrasound findings in all 4 quadrants. Scanning of the right axilla is negative for adenopathy. Left breast ultrasound: No evidence of solid or significant cystic lesions in all 4 quadrants. This i mplies that the 2 adjacent small 4 mm nodules described on the mammogram are most probably benign int ramammary lymph nodes. They are stable mammographically. Scanning of the left axilla is negative for significant adenopathy. IMPRESSION: Negative bilateral complete breast ultrasound, as described above. Appropriate follow-up is to keep this patient on a yearly mammogram schedule, with earlier imaging if a self detected breast change is noted.. BI-RADS Category 2 - Benign Findings Breast Density - Category C - Heterogeneously dense Breast density Category C or D implies that the patient has dense breast tissue. Dense breast tissue can make it harder to find cancer on a mammogram. Dense breast tissue is also associated with an incr eased risk of breast cancer. This information about the result of the mammogram report was provided to the patient to raise their awareness. Use this report when you speak with the patient about their risks for breast cancer, which includes their family history. At that time, you may recommend additional screening tests (Ultrasoun d or MRI) as these tests may add significant information. A negative radiographic report should not delay biopsy if a dominant or clinically suspicious mass is present. Up to ten percent of cancers are not identified on mammography. A negative report may reinforce clinical impression. Adenosis and dense breasts may obscure an underlying neoplasm. False positive reports average 6 to 10%. Patient will receive a letter notifying them of these results.
--- NOTE | 2023-09-02 | DI.MAMMO_ITS ---
Exam(s) MAMMO SCREENING EXAM: MAMMO SCREENING CLINICAL HISTORY: SCREENING, Z12.31. TECHNIQUE: Bilateral full field digital CC and MLO mammographic images were obtained with 3D tomosyn thesis and utilizing computer aided detection (CAD). COMPARISON: Prior mammograms were reviewed. FINDINGS: Fibroglandular tissue pattern of the breasts is moderately dense. No new radiograph findings in the right breast. In the lateral aspect of the left breast there are 2 small adjacent nodular densities, both measuring 4 mm, located 4 cm in from the nipple, slightly lateral of center. These appear stable when compare d to prior mammograms. Please note that we ended up performing a bilateral complete breast ultrasoun d exam following today's mammogram to study this area in the left breast (in addition to what was zhang ginally a right breast ultrasound request). There are no significant focal ultrasound findings in th e left breast and therefore these 2 small nodules are probably benign intramammary lymph nodes or jus t part of her fibroglandular pattern. Nevertheless, they exhibit benign appearance. There are no malignant-appearing microcalcification groups in either breast. There is no significant architectural distortion nor skin thickening-retraction. IMPRESSION: Moderately dense fibroglandular tissue. Benign findings. No radiographic evidence of malignancy. See separate bilateral breast ultrasound dictation BI-RADS Category 2 - Benign Findings Breast Density - Category C - Heterogeneously dense Breast density Category C or D implies that the patient has dense breast tissue. Dense breast tissue can make it harder to find cancer on a mammogram. Dense breast tissue is also associated with an incr eased risk of breast cancer. This information about the result of the mammogram report was provided to the patient to raise their awareness. Use this report when you speak with the patient about their risks for breast cancer, which includes their family history. At that time, you may recommend additional screening tests (Ultrasoun d or MRI) as these tests may add significant information. A negative radiographic report should not delay biopsy if a dominant or clinically suspicious mass is present. Up to ten percent of cancers are not identified on mammography. A negative report may reinforce clinical impression. Adenosis and dense breasts may obscure an underlying neoplasm. False positive reports average 6 to 10%. Patient will receive a letter notifying them of these results.
== END ==
PROVIDERS: PCP Family Medicine; Visit Provider Family Medicine
DX: Z12.31 Encounter for screening mammogram for malignant neoplasm of breast (principal); R92.8 Other abnormal and inconclusive findings on diagnostic imaging of breast
CPT/HCPCS: 76642; 77063; 77067

== ENCOUNTER 2023-10-15 19:24 | Outpatient (REF) | payer BC, SELFPAY ==
[2023-10-15 18:13] LABS: ALT 37 U/L (14-59); AST 38 U/L (15-37); Albumin 3.8 g/dL (3.4-5.0); Alkaline Phosphatase 75 U/L (46-116); Bilirubin, Direct 0.2 mg/dL (0.0-0.2); Bilirubin, Total 0.55 mg/dL (0.2-1.0); Total Protein 7.4 g/dL (6.4-8.2)
== END 2023-10-15 19:25 | disposition home or self-care (01) ==
LOC: NCHCN 19:24
PROVIDERS: PCP Family Medicine; Visit Provider Family Medicine
DX: R74.01 Elevation of levels of liver transaminase levels (principal)
CPT/HCPCS: 80076